=== PATIENT | male | born 1965 | race African-American/Black ===

== ENCOUNTER 2016-09-12 08:39 | Day surgery (SDC) | payer OTHER ==
[~2016-09-12] VITALS: Ht 193 cm; Wt 97.1 kg
[2016-09-12 09:49] VITALS: Ht 193 cm; Wt 97.1 kg
[2016-09-12] MEDS ORDERED: BACL20TA PO (09:56)
[2016-09-12] MEDS ORDERED: [UNRECOGNIZED DRUG - OTHER] PO (09:56)
[2016-09-12] MEDS ORDERED: STOOL SOFTENER RECTAL (09:56)
[2016-09-12] MEDS ORDERED: TRAM50TA2 PO (09:56)
[2016-09-12] MEDS ORDERED: GABA-528 PO (09:56)
[2016-09-12] MEDS ORDERED: IBUP100T29 PO (09:56)
[2016-09-12 10:02] VITALS: BP 125/71; PULSE 59; RESP 20
[2016-09-12 10:55] VITALS: BP 141/95; PULSE 62; RESP 18
--- NOTE | 2016-09-12 11:06 | GILP ---
DATE OF PROCEDURE: 09/12/2016 NAME OF PROCEDURE: Colonoscopy. PREOPERATIVE DIAGNOSIS: Screening colonoscopy to rule out colon polyps. POSTOPERATIVE DIAGNOSES: No evidence of polyps noted. Minimal internal and external hemorrhoids we re noted. DESCRIPTION OF PROCEDURE: After informed written consent was obtained, the patient was asked to lie on the left lateral side. A total of 3 mg Versed and 75 mcg of fentanyl was given as intravenous a nesthesia. When the patient became somnolent, the Olympus video colonoscope was introduced into the rectum and scope was advanced all the way to the cecum. Some stool was noted along the colon which was aspirat ed. No polyps, no carcinoma noted. Endoscope at this time was withdrawn from the cecum and on the way out, further evaluation was carried out. No additional abnormalities detected. Minimal interna l hemorrhoids noted on retroflexion and when the scope was withdrawn, minimal external hemorrhoids w ere noted and the procedure was terminated. PLAN: Recommend a high fiber diet and recommend repeat colonoscopy in 10 years. Dictated By: SLOANE RASCON MD NC/TIFF Conf#: [id number] DID#: [id number] CC: SLOANE RASCON MD; Catrina Beaver MD;*EndCC*
[2016-09-12] MEDS ORDERED: MIDAZOLAM 1 MG/ML 2 ML INJ ONE ×2 (14:33)
[2016-09-12] MEDS ORDERED: FENTAnyl 50 MCG/ML VIAL ONE (14:33)
== END 2016-09-12 19:02 | disposition home or self-care (01) ==
LOC: GIL 08:39
PROVIDERS: ATTEND Internal Medicine Gastroenterology
DX: Z12.11 Encounter for screening for malignant neoplasm of colon (principal); K64.4 Residual hemorrhoidal skin tags; K64.8 Other hemorrhoids
CPT/HCPCS: 45378; J2250; J3010; Z7610